=== PATIENT | female | born 1985 | race Caucasian/White ===

== ENCOUNTER 2016-04-16 14:55 | Emergency (ER) | payer BC | END 2016-04-16 19:09 | disposition home or self-care (01) | LOC: ER 14:55 | DX: S86.111A Strain of other muscle(s) and tendon(s) of posterior muscle group at lower leg level, right leg, initial encounter (principal); D72.819 Decreased white blood cell count, unspecified | CPT/HCPCS: 36415; 80053; 85025; 85379 ==